=== PATIENT | female | born 1990 | race Two or more races ===

== ENCOUNTER 2022-12-28 09:09 | Emergency (ER) | payer OTHER ==
[~2022-12-28] VITALS: Ht 167.6 cm; Wt 65.3 kg
[2022-12-28] MEDS ORDERED: PRENA1 TRUE CO1 EACH (09:36)
[2022-12-28 10:10] LABS: HEMATOCRIT 37.4 % (36.0-45.00); HEMOGLOBIN 12.5 g/dL (12.0-15.00); MEAN CELL VOLUME 85.6 fL (80.00-100.00); MEAN CORPUSCULAR HEMOGLOBIN 28.5 pg (27.00-32.0); MEAN CORPUSCULAR HGB CONC 33.3 g/dl (32.0-36.0); PLATELET COUNT 254 K/uL (150-450); RED BLOOD COUNT 4.37 M/uL (4.00-6.00); RED CELL DISTRIBUTION WIDTH 13.5 % (11.5-14.5)
[2022-12-28 10:40] LABS: PH,URINE 7.5 (5.0-8.0); URINE APPEARANCE Cloudy; URINE BILIRRUBIN Negative (NEGATIVE); URINE BLOOD Large; URINE COLOR Yellow; URINE GLUCOSE Negative (NEGATIVE); URINE LEUKOCYTE Trace; URINE NITRATE Negative; URINE PROTEIN Negative (NEGATIVE); URINE UROBILINOGEN 0.2 E.U./dl
[2022-12-28 10:43] LABS: URINE RBC 95.5 uL (0.0-20.8); URINE WBC 19.6 uL (0.0-23.2)
[2022-12-29] MEDS ORDERED: DUI500 PO (22:59)
== END 2022-12-28 13:56 | disposition home or self-care (01) ==
LOC: ER 09:09 → EDBD 09:15 → ER 13:56
PROVIDERS: Emergency Medicine
DX: O20.8 Other hemorrhage in early pregnancy (principal); Z3A.01 Less than 8 weeks gestation of pregnancy

== ENCOUNTER 2022-12-29 17:44 | Emergency (ER) | payer OTHER ==
[~2022-12-29] VITALS: Ht 167.6 cm; Wt 65.3 kg
[~2022-12-29 17:44] MED LIST: PRENA1 TRUE CO1 EACH
[2022-12-29 21:08] LABS: HEMATOCRIT 36.6 % (36.0-45.00); HEMOGLOBIN 12.4 g/dL (12.0-15.00); MEAN CELL VOLUME 84.1 fL (80.00-100.00); MEAN CORPUSCULAR HEMOGLOBIN 28.6 pg (27.00-32.0); PLATELET COUNT 268 K/uL (150-450); RED BLOOD COUNT 4.35 M/uL (4.00-6.00); RED CELL DISTRIBUTION WIDTH 13.5 % (11.5-14.5)
[2022-12-29 21:26] LABS: INR 1.03; PARTIAL THROMBOPLASTIN TIME 27.6 SECONDS (22.0-34.0); PROTHROMBIN TIME 10.8 SECONDS (9.0-11.5)
[2022-12-29 21:48] LABS: CALCIUM 9.6 mg/dL (8.5-10.1); CREATININE SERUM 0.65 mg/dL (0.55-1.02); GFR 107.02; POTASSIUM 3.65 mEq/L (3.5-5.1)
[2022-12-29 21:50] LABS: URINE APPEARANCE Turbid; URINE BILIRRUBIN Negative (NEGATIVE); URINE BLOOD Large; URINE COLOR Orange; URINE GLUCOSE Negative (NEGATIVE); URINE LEUKOCYTE Moderate; URINE NITRATE Negative; URINE PROTEIN 30 (NEGATIVE)
[2022-12-29 21:52] LABS: URINE BACTERIA 156.2 uL (0.0-1933); URINE EPITHELIAL CELLS 13.1 uL (0.0-38.8)
[2022-12-29] MEDS ORDERED: DUI500 PO (22:59)
== END 2022-12-29 23:56 ==
LOC: ER 17:45
PROVIDERS: Nurse Practitioner Family
DX: O20.8 Other hemorrhage in early pregnancy (principal); Z3A.01 Less than 8 weeks gestation of pregnancy; O23.31 Infections of other parts of urinary tract in pregnancy, first trimester; N39.0 Urinary tract infection, site not specified
CPT/HCPCS: 36415; 96365; 99284; J7050

== ENCOUNTER 2023-04-13 14:27 | Emergency (ER) | payer OTHER ==
[~2023-04-13] VITALS: Ht 165.1 cm; Wt 70.3 kg
[~2023-04-13 14:27] MED LIST changes: +DUI500 PO
[2023-04-13 16:17] LABS: HEMATOCRIT 38.2 % (36.0-45.00); MEAN CELL VOLUME 85.9 fL (80.00-100.00); MEAN CORPUSCULAR HEMOGLOBIN 29.2 pg (27.00-32.0); PLATELET COUNT 283 K/uL (150-450); RED BLOOD COUNT 4.45 M/uL (4.00-6.00); RED CELL DISTRIBUTION WIDTH 13.1 % (11.5-14.5)
[2023-04-13 16:33] LABS: PH,URINE 6.5 (5.0-8.0); URINE APPEARANCE Clear; URINE BILIRRUBIN Negative (NEGATIVE); URINE BLOOD Large; URINE COLOR Yellow; URINE GLUCOSE Negative (NEGATIVE); URINE LEUKOCYTE Negative; URINE NITRATE Negative; URINE PROTEIN Trace (NEGATIVE); URINE UROBILINOGEN 0.2 E.U./dl
[2023-04-13 16:37] LABS: URINE BACTERIA 251.9 uL (0.0-1933); URINE EPITHELIAL CELLS 10.6 uL (0.0-38.8); URINE RBC 18.6 uL (0.0-20.8); URINE WBC 14.5 uL (0.0-23.2)
[2023-04-13 16:53] LABS: CALCIUM 9.7 mg/dL (8.5-10.1); CREATININE SERUM 0.68 mg/dL (0.55-1.02); GFR 101.59; POTASSIUM 3.44 mEq/L (3.5-5.1)
== END 2023-04-13 17:31 | disposition home or self-care (01) ==
LOC: ER 14:28
PROVIDERS: General Practice
DX: O20.8 Other hemorrhage in early pregnancy (principal); Z3A.01 Less than 8 weeks gestation of pregnancy

== ENCOUNTER 2024-03-28 13:25 | Outpatient (CLI) | payer OTHER | END 2024-03-28 13:26 | disposition home or self-care (01) | LOC: PRENATAL 13:25 | PROVIDERS: ATTEND Obstetrics & Gynecology Maternal & Fetal Medicine | DX: O36.80X0 Pregnancy with inconclusive fetal viability, not applicable or unspecified (principal); Z36.82 Encounter for antenatal screening for nuchal translucency; Z14.8 Genetic carrier of other disease; Z3A.12 12 weeks gestation of pregnancy ==

== ENCOUNTER → 2024-05-26 10:50 | Outpatient (CLI) | payer OTHER | END | disposition home or self-care (01) | LOC: PRENATAL 10:50 | PROVIDERS: ATTEND Obstetrics & Gynecology Maternal & Fetal Medicine | DX: O44.00 Complete placenta previa NOS or without hemorrhage, unspecified trimester (principal); Z3A.21 21 weeks gestation of pregnancy ==

== ENCOUNTER 2024-07-21 10:33 | Outpatient (CLI) | payer OTHER | END 2024-07-21 10:34 | disposition home or self-care (01) | LOC: PRENATAL 10:33 | PROVIDERS: ATTEND Obstetrics & Gynecology Maternal & Fetal Medicine | DX: O26.849 Uterine size-date discrepancy, unspecified trimester (principal); Z3A.29 29 weeks gestation of pregnancy ==

== ENCOUNTER 2024-08-29 09:50 | Outpatient (CLI) | payer OTHER | END 2024-08-29 09:51 | disposition home or self-care (01) | LOC: PRENATAL 09:50 | PROVIDERS: ATTEND Obstetrics & Gynecology Maternal & Fetal Medicine | DX: O26.849 Uterine size-date discrepancy, unspecified trimester (principal); O36.8199 Decreased fetal movements, unspecified trimester, other fetus; Z3A.35 35 weeks gestation of pregnancy ==

== ENCOUNTER 2024-09-16 14:01 | Inpatient (IN) | payer OTHER ==
[~2024-09-16] VITALS: Ht 162.6 cm; Wt 86.6 kg
[2024-09-23] MEDS ORDERED: CEPHALEXIN500 M1 PO (08:23)
[2024-10-03 16:55] VITALS: BP 108/66
[2024-10-03] MEDS ORDERED: RINGERS SOLUTION,LACTATED 1,000 ML IV SCH (17:45)
[2024-10-03] MEDS ORDERED: PRENATAL TABLE1 EAC1 PO (17:45)
[2024-10-03] MEDS ORDERED: AMPICILLIN SODIUM 2,000 MG VIAL IV ONE (17:45)
[2024-10-03 18:08] LABS: BASO % 0.2 % (0.1-1.2); EOS # 0.13 (0.04-0.54); EOS % 1.1 % (0.7-7.0); LYMPH # 1.46 (1.18-3.74); LYMPH % 11.9 % (19.3-53.1); MEAN PLATELET VOLUME 10.10 fl (9.4-12.4); MONO # 0.90 (0.24-0.82); MONO % 7.3 % (4.7-12.5); NEUT # 9.67 (1.56-6.13); NEUT % 78.9 % (34.0-71.1); RED CELL DISTRIBUTION WIDTH 13.4 % (11.6-14.4)
[2024-10-03 18:10] LABS: URINE APPEARANCE Cloudy; URINE BILIRRUBIN Negative (NEGATIVE); URINE BLOOD Trace; URINE COLOR Yellow; URINE GLUCOSE Negative (NEGATIVE); URINE LEUKOCYTE Small; URINE NITRATE Negative; URINE PROTEIN Trace (NEGATIVE); URINE UROBILINOGEN 0.2 E.U./dl
[2024-10-03 18:13] LABS: URINE BACTERIA 6608.4 uL (0.0-1933); URINE EPITHELIAL CELLS 41.2 uL (0.0-38.8); URINE RBC 7.0 uL (0.0-20.8); URINE WBC 114.6 uL (0.0-23.2)
[2024-10-03 18:18] LABS: URINE CAST 1.02 uL (0.0-1.40); URINE KETONE 40 (NEGATIVE)
[2024-10-03 18:31] LABS: INR 1.0
[2024-10-03] MEDS ORDERED: LIDOCAINE HCL 1% 10ML VIAL ONE (19:34)
[2024-10-03] MEDS ORDERED: ERYTHROMYCIN BASE OPHT 1GM EACH TUBE OP ONE (19:34)
[2024-10-03] MEDS ORDERED: CHLORHEXIDINE GLUCONATE 120 ML BOTTLE TOP ONE (19:34)
[2024-10-03] MEDS ORDERED: OXYTOCIN 20 UNITS/1000ML RL PIGGYBAG IV ONE (19:34)
[2024-10-03] MEDS ORDERED: OXYTOCIN 500 ML IV SCH (19:45)
[2024-10-03 20:50] VITALS: BP 110/70
[2024-10-03] MEDS ORDERED: AMPICILLIN SODIUM 1,000 MG VIAL IV SCH (21:00)
[2024-10-03] MEDS ORDERED: MORPHINE SULFATE 4 MG/ML VIAL IV ONE (21:00)
[2024-10-03] MEDS ORDERED: OXYTOCIN 1,000 ML IV SCH (22:15)
[2024-10-03] MEDS ORDERED: CHLORHEXIDINE GLUCONATE 120 ML BOTTLE TOP SCH (22:15)
[2024-10-03 23:03] VITALS: BP 122/68
[2024-10-04] MEDS ORDERED: ACETAMINOPHEN 325 MG TABLET PO SCH
[2024-10-04] MEDS ORDERED: ACETAMINOPHEN 325 MG TABLET PO ONE (00:30)
[2024-10-04 01:00] VITALS: BP 123/74
[2024-10-04 08:00] VITALS: BP 94/55
[2024-10-04] MEDS ORDERED: PNV,CALCIUM 72/IRON/FOLIC ACID 1 TAB TABLET PO SCH (09:00)
[2024-10-04 09:26] LABS: BASO % 0.2 % (0.1-1.2); EOS # 0.04 (0.04-0.54); EOS % 0.2 % (0.7-7.0); LYMPH # 1.53 (1.18-3.74); LYMPH % 7.9 % (19.3-53.1); MEAN PLATELET VOLUME 10.50 fl (9.4-12.4); MONO # 1.44 (0.24-0.82); MONO % 7.5 % (4.7-12.5); NEUT # 16.16 (1.56-6.13); NEUT % 83.8 % (34.0-71.1); RED CELL DISTRIBUTION WIDTH 13.4 % (11.6-14.4)
[2024-10-04 17:25] VITALS: BP 100/67
[2024-10-05] VITALS: BP 101/51
[2024-10-05 08:59] VITALS: BP 93/58
== END 2024-10-05 11:16 | disposition home or self-care (01) | DRG 807 ==
LOC: OB/GYN 10-03 17:31 → LDR 10-03 17:31 → OB/GYN 10-03 21:44 → LDR 10-10 13:43
PROVIDERS: Obstetrics & Gynecology; ADMIT Obstetrics & Gynecology; ATTEND Obstetrics & Gynecology
PROC: 10E0XZZ Delivery of Products of Conception, External Approach (ICD-10-PCS; principal; 2024-10-03)
PROC: 0KQM0ZZ Repair Perineum Muscle, Open Approach (ICD-10-PCS; 2024-10-03)
PROC: 4A1HXCZ Monitoring of Products of Conception, Cardiac Rate, External Approach (ICD-10-PCS; 2024-10-03)
DX: O70.1 Second degree perineal laceration during delivery (principal); Z37.0 Single live birth; O99.824 Streptococcus B carrier state complicating childbirth; Z3A.39 39 weeks gestation of pregnancy

== ENCOUNTER 2024-09-22 13:20 | Outpatient (CLI) | payer OTHER ==
[~2024-09-22] VITALS: Ht 162.6 cm; Wt 87.1 kg
[2024-09-22 12:47] VITALS: BP 96/64
[2024-09-22] MEDS ORDERED: RINGERS SOLUTION,LACTATED 1,000 ML IV SCH (13:30)
[2024-09-22 14:34] LABS: URINE APPEARANCE Cloudy; URINE BILIRRUBIN Negative (NEGATIVE); URINE BLOOD Trace; URINE COLOR Yellow; URINE GLUCOSE Negative (NEGATIVE); URINE KETONE Negative (NEGATIVE); URINE LEUKOCYTE Moderate; URINE NITRATE Negative; URINE PROTEIN Trace (NEGATIVE); URINE UROBILINOGEN 0.2 E.U./dl
[2024-09-22 14:38] LABS: URINE CAST 2.34 uL (0.0-1.40); URINE EPITHELIAL CELLS 55.9 uL (0.0-38.8); URINE RBC 7.6 uL (0.0-20.8); URINE WBC 134.3 uL (0.0-23.2)
[2024-09-22 14:41] LABS: BASO % 0.3 % (0.1-1.2); EOS # 0.16 (0.04-0.54); EOS % 1.4 % (0.7-7.0); LYMPH # 1.49 (1.18-3.74); LYMPH % 12.9 % (19.3-53.1); MEAN PLATELET VOLUME 10.00 fl (9.4-12.4); MONO # 0.84 (0.24-0.82); MONO % 7.3 % (4.7-12.5); NEUT # 8.91 (1.56-6.13); NEUT % 77.3 % (34.0-71.1); RED CELL DISTRIBUTION WIDTH 13.8 % (11.6-14.4)
[2024-09-22 15:05] VITALS: BP 101/68
[2024-09-22 15:32] LABS: ALT/SGPT 10.0 U/L (12-78); AST/SGOT 10.0 U/L (15-37); BILIRUBIN TOTAL 0.43 mg/dL (0.3-1.2); BUN CREA RATIO 10.0 (7.0-25.0); CREATININE SERUM 0.39 mg/dL (0.55-1.02); GFR 191.69; GLOBULINA 4.0 G/DL (2.4-3.5); GLUCOSE FASTING 69.0 mg/dL (65-100); LDH 144.0 U/L (84-246); OSMOLALITY SERUM 273.0 MOSM/KG (275-295)
[2024-09-22 15:34] LABS: TYPE CELLS SQUAMOUS; URINE BACTERIA > 9821.5 uL (0.0-1933)
[2024-09-22 16:18] LABS: INR 0.99
[2024-09-22 18:59] VITALS: BP 101/60
[2024-09-22] MEDS ORDERED: CEFTRIAXONE SODIUM 2,000 MG VIAL IV SCH (19:15)
[2024-09-22] MEDS ORDERED: MORPHINE SULFATE 4 MG/ML VIAL IV PRN (19:15)
[2024-09-22 23:19] VITALS: BP 99/61; O2SAT 100
[2024-09-23 01:05] VITALS: BP 102/62
[2024-09-23 03:00] VITALS: BP 97/58
[2024-09-23 06:14] VITALS: BP 96/56; O2SAT 98
[2024-09-23] MEDS ORDERED: CEPHALEXIN500 M1 PO (08:23)
[2024-09-23 10:48] VITALS: BP 96/56
[2024-09-23] MEDS ORDERED: CEFTRIAXONE SODIUM 2,000 MG VIAL IV SCH (17:00)
== END 2024-09-23 14:23 | disposition home or self-care (01) ==
LOC: OBS/DEL 13:20
PROVIDERS: ATTEND Obstetrics & Gynecology
DX: O36.8330 Maternal care for abnormalities of the fetal heart rate or rhythm, third trimester, not applicable or unspecified (principal); O26.849 Uterine size-date discrepancy, unspecified trimester; O36.8130 Decreased fetal movements, third trimester, not applicable or unspecified; Z3A.39 39 weeks gestation of pregnancy